=== PATIENT | female | born 1940 | race Two or more races ===

== ENCOUNTER 2017-04-13 11:48 | Emergency (ER) | payer MEDICARE, MEDICAID ==
--- NOTE | ~2017-04-13 | ER ---
PATIENT'S NAME: ENE ROACH [facility] AGE: 76 Y [address] ROOM: [place] [address] LOCATION: [facility] ADMIT DATE: 04/13/2017 ER/Outpatient Report DISCHARGE DATE: 04/13/2017 FAMILY PHYSICIAN: Rosas Bulter MD ATTENDING PHYSICIAN: Makenna Farr Time of Arrival: 1448 hours. Time Seen: 1148 hours. IDENTIFICATION: A 76-year-old female. CHIEF COMPLAINT: Shortness of breath and chest pain. HISTORY OF PRESENT ILLNESS: The patient is a 76-year-old female from [facility], patient of Dr. Butler, who was sent over from the clinic by Dr. Lal. Ene states she has had chest pain substernal for the last 3 weeks and shortness of breath with increasing lower extremity swelling. The chest pain she describes as worse with movement. The patient does have a history of coronary artery disease. Currently, her pain is 7/10 on the pain scale. ALLERGIES: PENICILLIN, MORPHINE, TB TEST, BLUEBERRY, FISH. CURRENT MEDICATIONS: 1. Allopurinol 100 mg 2 tablets daily. 2. Alphagan eyedrops 0.1% one drop in the right eye 2 times daily. 3. Aspirin 81 mg daily. 4. Bumex 3 mg daily. 5. Cefadroxil 500 mg 2 times daily. 6. Coreg 3.125 mg daily. 7. Cosopt 1 drop in right eye 2 times a day. 8. Coumadin 5 mg daily. 9. Flonase 2 sprays to each nostril once daily. 10. Fluoxetine 40 mg daily. 11. Imodium AD p.r.n. 12. Klonopin 0.5 mg at h.s. 13. Levemir 38 units subcutaneous at bedtime. 14. Levemir 40 units subcutaneous q.a.m. 15. Levothyroxine 137 mcg daily. 16. Multivitamin daily. 17. Nitrostat p.r.n. 18. [place] p.r.n. PATIENT'S NAME: ENE ROACH [facility] AGE: 76 Y [address] ROOM: [place] [address] LOCATION: [facility] ADMIT DATE: 04/13/2017 ER/Outpatient Report DISCHARGE DATE: 04/13/2017 FAMILY PHYSICIAN: Rosas Butler MD ATTENDING PHYSICIAN: Makenna Farr 19. NovoLog 20 units subcutaneous with meals. 20. Nystatin powder. 21. Omeprazole. 22. Sodium bicarbonate 650 b.i.d. 23. Tylenol p.r.n. MEDICAL PROBLEMS: Diastolic congestive heart failure; insulin-dependent diabetes mellitus; chronic kidney disease; dyslipidemia; hypothyroidism; obstructive sleep apnea; history of DVT, on chronic anticoagulation; venous insufficiency of lower extremities; gastroesophageal reflux disease; recurrent UTIs; morbid obesity; gastritis; asthma; COPD; anemia of chronic disease; depression; allergic rhinitis; history of MRSA infection; chronic low back and hip pain; degenerative joint disease; chronic osteomyelitis. PRIOR SURGERIES: Appendectomy; tonsillectomy; cholecystectomy; lumbar laminectomy; total abdominal hysterectomy and salpingo-oophorectomy; cardiac catheterization; EGD; debridement of left ischial decubitus ulcer in 2005; and right forefoot amputation, transmetatarsal. SOCIAL HISTORY: The patient resides at [facility]. Tobacco use, denies. Alcohol use, denies. Drug use, denies. She is nonambulatory. She is wheelchair bound. FAMILY HISTORY: Positive for diabetes mellitus and heart disease. REVIEW OF SYSTEMS: All systems reviewed and negative other than what is noted in the HPI. PHYSICAL EXAMINATION: VITAL SIGNS: Weight 137.4 kg, pulse 80, respirations 21, temperature 96, blood pressure 152/89, and saturations 86% on room air. The patient was placed on O2 per nasal cannula, she said that she has that p.r.n. at the [facility]. HEENT: Unremarkable. LUNGS: Clear to auscultation. HEART: Regular rate and rhythm. ABDOMEN: Soft, nondistended, and nontender. SKIN: [place], warm, and dry. NEUROLOGIC: No focal deficit. EXTREMITIES: She has 2+ edema. She has a heel protector on her left, as she has a small blood-filled blister on her left heel. She has an orthotic shoe PATIENT'S NAME: ENE ROACH [facility] AGE: 76 Y [address] ROOM: [place] [address] LOCATION: [facility] ADMIT DATE: 04/13/2017 ER/Outpatient Report DISCHARGE DATE: 04/13/2017 FAMILY PHYSICIAN: Rosas Butler MD ATTENDING PHYSICIAN: Makenna Farr on her right foot. LABORATORY DATA AND DIAGNOSTIC DATA: EKG at 1200 hours: Normal sinus rhythm at 79 beats per minute, first-degree AV block, right bundle branch block, Q-waves noted inferiorly. Repeat EKG at 1:48 p.m.: Normal sinus rhythm at 82 beats per minute, first-degree AV block, right bundle branch block, no change from the earlier EKG. Hemoglobin 10.3, hematocrit 32.7, macrocytic indices, platelets 195, white count 8.3 with a normal differential. INR 3.35. Sodium 142, potassium 5.1, chloride 108, CO2 29, BUN 63, creatinine 1.8 which is stable, and blood sugar 180. Liver enzymes normal. Magnesium 1.6. D-dimer is 0.38. The patient was given fentanyl 12.5 mg and her pain completely relieved. IMPRESSION: Noncardiac chest pain, chest wall pain. PLAN: Continue her current plan of care. O2 as needed to maintain sats greater than 90%. Follow up with Dr. Lal in 1-2 days. Follow up sooner if any problems or concerns. MAKENNA FARR MD CAR/modl /[id number] d: 04/14/[id number] t: 04/16/17 1500, OUTPATIENT REPORT
[~2017-04-13 11:48] MED LIST: ALDACTONE25 MG; ALPHAGAN P5 ML OPHTH; ANUCORT-HC25 MG R; ARTIFICIAL TEAR15 M1 OPHTH; ASPERCREME HE70.8 GM TOP; ASPIR 8181 MG PO; BUMEX1 MG PO; CLARITIN10 M2 PO; COREG3.125 MG PO; COSOPT EYE DROP10 ML OPHTH; COSOPT PF EYE1 EACH OPHTH; COUMADIN **IA2.5 MG PO; COZAAR25 MG PO; DULCOLAX10 MG R; DURICEF (NON-500 MG PO; FLONASE 50 MCG/16 GM INH; IMDUR30 MG PO; IPRAT-ALBUT 0.5-3 ML NEB; KAYEXALATE15 GM/60 M PO; KLONOPIN0.5 M1 PO; LASIX40 M1 PO; LASIX80 MG PO; LEVEMIR100 UNIT/1 SUB-Q; LEVOTHROID (S137 MCG PO; LEVOTHROID (S150 MCG PO; LOPERAMIDE2 M1 PO; LUBRICANT EYE D10 ML OPHTH; MILK OF MA400 MG/5 M; MULTIVITAMINS1 EAC1 PO; NITROSTAT0.4 MG SL; NORCO 5-325 MG1 TAB PO; NOVOLOG100 UNIT/M SUB-Q; OXYGEN INH; PAIN RELIEF650 MG PO; PERCOCET 5-3251 EACH PO; PREDNISONE PO; PRILOSEC20 M1 PO; PROZAC40 MG PO; ROBITUSSIN DM120 ML PO; SALINE NOSE SPR45 ML NS; SODIUM BICAR325 MG PO; SODIUM BICARBO650 MG PO; TRIAMCINOLONE454 GM TOP; WARFARIN SODIUM5 MG PO; ZAROXOLYN2.5 MG PO
[2017-04-13 12:27] LABS: BASOPHIL % 0.4 %; EOSINOPHIL # 0.3 K/uL (0.0-0.5); EOSINOPHIL % 3.4 %; HEMATOCRIT 32.7 % (33.0-46.0); HEMOGLOBIN 10.3 g/dL (10.0-15.0); IMMATURE GRANULOCYTE % 0.5 %; LYMPHOCYTE # 1.4 K/uL (0.8-4.0); LYMPHOCYTE % 16.8 %; MCH 31.8 pg (27.0-34.0); MCHC 31.5 gm/dL (32.0-36.5); MCV 100.9 fl (83.0-98.0); MONOCYTE # 0.5 K/uL (0.0-1.0); MPV 11.7 fl (9.4-12.4); NEUTROPHIL # (ANC) 6.1 K/uL (1.8-7.8); NEUTROPHIL % 72.9 %; NRBC % 0 /100WBC (0-0.00); PLATELET COUNT 195 K/uL (150-450); RBC 3.24 M/uL (3.50-5.50); RDW-CV 15.4 % (11.9-14.6); WBC 8.3 K/uL (4.0-11.0)
[2017-04-13 12:35] LABS: PTT 45 SECONDS (25-32)
[2017-04-13 12:37] LABS: INR - (THERAPEUTIC) 3.35 (0.92-1.07); PROTIME 35.6 SECONDS (9.8-11.4)
[2017-04-13 12:45] LABS: ANION GAP 10.1 (10.0-19.0); CALCIUM 7.9 mg/dL (8.5-10.5); CREATININE 1.8 mg/dL (0.5-1.1); MAGNESIUM 1.6 mg/dL (1.8-2.6); POTASSIUM 5.1 mMol/L (3.7-5.1); TOTAL BILIRUBIN 0.3 mg/dL (0.0-1.5); TOTAL PROTEIN 7.2 g/dL (6.0-8.4)
== END 2017-04-13 15:42 | disposition disaster alternative care site (69) ==
LOC: GMED 11:48
PROVIDERS: Family Medicine
DX: R07.89 Other chest pain (principal); E11.22 Type 2 diabetes mellitus with diabetic chronic kidney disease; D63.1 Anemia in chronic kidney disease; E78.5 Hyperlipidemia, unspecified; I50.30 Unspecified diastolic (congestive) heart failure; E03.9 Hypothyroidism, unspecified; G47.33 Obstructive sleep apnea (adult) (pediatric); K21.9 Gastro-esophageal reflux disease without esophagitis; E66.01 Morbid (severe) obesity due to excess calories; J45.909 Unspecified asthma, uncomplicated; J44.9 Chronic obstructive pulmonary disease, unspecified; F32.9 Major depressive disorder, single episode, unspecified; Z90.49 Acquired absence of other specified parts of digestive tract; Z90.89 Acquired absence of other organs; Z90.710 Acquired absence of both cervix and uterus; Z95.818 Presence of other cardiac implants and grafts; Z88.0 Allergy status to penicillin; Z88.5 Allergy status to narcotic agent; Z91.013 Allergy to seafood; Z91.018 Allergy to other foods
CPT/HCPCS: J3010